=== PATIENT | female | born 1990 | race African-American/Black ===

== ENCOUNTER 2020-07-16 14:38 | Emergency (ER) | payer OTHER, SELFPAY ==
[2020-07-16 14:42] VITALS: BP 153/97; PULSE 104; RESP 16; TEMP 36.4; O2SAT 99
--- NOTE | 2020-07-16 14:58 | ED.URI ---
HPI - URI/Sore Throat General Chief Complaint: Upper Respiratory Infection Stated Complaint: sore throat Time Seen by Provider: 07/16/20 14:48 Source: patient and RN notes reviewed Mode of arrival: ambulatory Limitations: no limitations History of Present Illness HPI Narrative: Patient presents today complaining of sore throat x2 days with fever up to 102.5, with minor congestion and rhinorrhea. Currently rates her pain 8/10 and has been taking Tylenol for fever with some relief. She had a negative COVID test a few days ago. No recent antibiotic use. Denies shortness of breath or difficulty swallowing. Pain increases with swallowing. MD elicited complaint: sore throat Related Data Allergies Allergy/AdvReac Type Severity Reaction Status Date / Time No Known Allergies Allergy Unknown Verified 07/16/20 14:48 Review of Systems Review of Systems: Narrative: CONSTITUTIONAL: Denies body aches, chills, or sweats.+ Fever EYES: Denies visual changes, redness, or discharge. ENT: Denies otalgia. + Sore throat, congestion, rhinorrhea CARDIOVASCULAR: Denies chest pain, palpitations, or edema. RESPIRATORY: Denies cough or dyspnea. GASTROINTESTINAL: Denies abdominal pain, nausea, vomiting, or diarrhea. GENITOURINARY: Denies dysuria or hematuria. SKIN: Denies rash, itching, or wounds. MUSCULOSKELETAL: Denies back pain, joint pain, or myalgia. NEUROLOGIC: Denies headache, numbness, tingling, or weakness. PSYCH: Denies depression or anxiety. [facility] Past Medical History Medical History (Updated 07/16/20 @ 15:04 by Susan Darling, [facility]) Asthma Bronchitis Surgical History Surgical History Previous section Social History Social History Social History: Smoker Smoking status: Current every day smoker Tobacco type: cigarettes Gender identity (if verbalized by the patient): Female Comments At time of signature, I have reviewed and agree with nursing past medical, surgical, social and family history unless otherwise noted. Please see nursing chart for further information. There is no relevant family history pertinent to the presenting complaint Exam Narrative: Exam Narrative: GENERAL: Well-appearing, well-nourished, and in no acute distress. HEAD: Normocephalic, atraumatic. EYES: EOMI. No redness or drainage. Conjunctivae normal. ENT: Mucous membranes pink and moist. Nares clear. No rhinorrhea. TMs normal bilaterally. Throat severely erythematous. Tonsils 4+ with exudate. Uvula midline. NECK: Normal AROM. Supple. Bilateral anterior and tonsillar lymphadenitis, left posterior lymphadenitis CHEST: No respiratory distress. Clear to auscultation. HEART: Regular rate and rhythm. No murmur appreciated. Normal peripheral pulses. EXTREMITIES: Normal range of motion. No edema. SKIN: Warm, dry, no rash. Capillary refill normal. Normal skin turgor. NEURO: No focal deficits. Alert and oriented x3. Gait steady. PSYCH: Normal affect. No signs of depression or anxiety. Course Vital Signs Vital signs: Vital Signs Temperature 97.6 F 07/16/20 14:42 Pulse Rate 104 H 07/16/20 14:42 Respiratory Rate 16 07/16/20 14:42 Blood Pressure 153/97 H 07/16/20 14:42 Pulse Oximetry 99 07/16/20 14:42 Temperature 97.6 F 07/16/20 14:42 Pulse Rate 104 H 07/16/20 14:42 Respiratory Rate 16 07/16/20 14:42 Blood Pressure 153/97 H 07/16/20 14:42 Pulse Oximetry 99 07/16/20 14:42 Reviewed. Pt has been instructed to follow up with her PCP regarding her elevated blood pressure today. MDM - URI/Sore Throat Differential Diagnosis Differential diagnosis: Likely upper respiratory infection, otitis media, viral infection, pharyngitis and other (Tonsillitis, strep throat) Lab Data Attestation: I reviewed the patient's lab results. Labs: Strep Screen Positive Group A Strep
== END 2020-07-16 15:07 | disposition home or self-care (01) ==
PROVIDERS: Emergency Provider Nurse Practitioner
DX: J02.0 Streptococcal pharyngitis (principal); F17.219 Nicotine dependence, cigarettes, with unspecified nicotine-induced disorders; J45.909 Unspecified asthma, uncomplicated
CPT/HCPCS: 87880; 99213; G0463

== ENCOUNTER 2020-08-23 09:33 | Emergency (ER) | payer OTHER, SELFPAY ==
[2020-08-23 09:38] VITALS: BP 159/111; PULSE 87; RESP 16; TEMP 36.8; O2SAT 100
--- NOTE | 2020-08-23 09:59 | ED.SKABFB ---
HPI - Skin/Abscess/Foreign Bdy General Chief complaint: Skin/Abscess/Foreign Body Stated complaint: all over rash Time Seen by Provider: 08/23/20 10:00 Source: patient and RN notes reviewed Mode of arrival: ambulatory Limitations: no limitations History of Present Illness HPI narrative: 30-year-old female presents with concern for generalized itchy rash. Reports she was treated for potential scabies and an allergic reaction when the rash started over a month and a half ago. She reports she is used scabies treatment every other day for over a month, has washed all of her bedding several times weekly, vacuum furniture to treat for scabies. Reports all family members were treated for scabies. She reports generalized itchy bumps, large red patches under her breasts and in her groin. She denies difficulty breathing, swollen lips, swollen tongue. Denies any other intervention. MD complaint: rash Related Data Home Medications Medication Instructions Recorded Confirmed permethrin 5 applic TOPICAL DIRECTED 08/23/20 08/23/20 Allergies Allergy/AdvReac Type Severity Reaction Status Date / Time No Known Allergies Allergy Unknown Verified 07/16/20 14:48 Review of Systems Review of Systems: Narrative: CONSTITUTIONAL: Denies malaise, chills, sweats, or fever. EYES: Denies visual changes, redness, or discharge. ENT: Denies rhinorrhea, congestion, sinus pain, otalgia, sore throat, swollen lips, swollen tongue, difficulty swallowing. CARDIOVASCULAR: Denies chest pain, palpitations, or edema. RESPIRATORY: Denies cough or dyspnea. GASTROINTESTINAL: Denies abdominal pain, nausea, vomiting, diarrhea SKIN: Reports itchy rash generalized MUSCULOSKELETAL: Denies myalgia. NEUROLOGIC: Denies headache. All systems reviewed & are unremarkable except as noted in HPI and below [facility] Past Medical History Medical History (Updated 08/23/20 @ 10:15 by Katia Robles NP) Asthma Bronchitis Surgical History Surgical History Previous section Social History Social History Social History: Smoker Smoking status: Current every day smoker Tobacco type: cigarettes Gender identity (if verbalized by the patient): Female Comments At time of signature, agree with nursing past medical, surgical, social and family history. There is no relevant family history pertinent to the presenting complaint Exam Narrative: Exam Narrative: GENERAL: Well-appearing, well-nourished, and in no acute distress. HEAD: Normocephalic EYES: PERRLA, conjunctivae clear ENT: Nares clear. Mucous membranes moist. Oropharynx without edema erythema or lesions. NECK: Supple. CHEST: No respiratory distress. Clear to auscultation. No bony deformities, no asymmetry. Speaks in full sentences. HEART: Regular rate and rhythm. No murmur heard. SKIN: Warm, dry. Erythematous raised patch under entirety of breasts and groin with satellite lesions, generalized erythematous raised patches of rash, plaque NEURO: Alert and oriented x3. PSYCH: Normal mood and affect Course Course Emergency Course: Patient is aware of diagnosis, understands and agrees to treatment plan. Anticipatory guidance given. Patient agrees to follow-up as directed and is aware of reasons to seek care at the emergency department. Portions of this record may have been created with voice recognition software Vital Signs Vital signs: Vital Signs Temperature 98.3 F 08/23/20 09:38 Pulse Rate 87 08/23/20 09:38 Respiratory Rate 16 08/23/20 09:38 Blood Pressure 159/111 H 08/23/20 09:38 Pulse Oximetry 100 08/23/20 09:38 Temperature 98.3 F 08/23/20 09:38 Pulse Rate 87 08/23/20 09:38 Respiratory Rate 16 08/23/20 09:38 Blood Pressure 159/111 H 08/23/20 09:38 Pulse Oximetry 100 08/23/20 09:38 Reviewed. Patient has been instructed to follow up with her p
== END 2020-08-23 10:21 | disposition home or self-care (01) ==
PROVIDERS: Emergency Provider Nurse Practitioner
DX: R21 Rash and other nonspecific skin eruption (principal); B37.2 Candidiasis of skin and nail; J45.909 Unspecified asthma, uncomplicated; F17.210 Nicotine dependence, cigarettes, uncomplicated
CPT/HCPCS: 99213; G0463

== ENCOUNTER 2022-01-18 18:15 | Emergency (ER) | payer OTHER, SELFPAY ==
[2022-01-18 18:24] VITALS: BP 142/74; PULSE 93; RESP 18; TEMP 37.1; O2SAT 98
--- NOTE | 2022-01-18 18:34 | ED.SKABFB ---
HPI - Skin/Abscess/Foreign Bdy General Chief complaint: Skin/Abscess/Foreign Body Stated complaint: Inset Bite Time Seen by Provider: 01/18/22 18:35 Source: patient and RN notes reviewed Mode of arrival: ambulatory Limitations: no limitations History of Present Illness HPI narrative: 31-year-old female who is approximately 6 months and goes to [facility] in [place] for her OB care due to high risk. Complains of a 3 cm red warm area to the lateral aspect right breast. Patient states it started as a pimple 3 to 4 days ago and is just keeps getting bigger. Denies fevers, chest pain or abdominal pain. No nausea vomiting or diarrhea. Related Data Home Medications Medication Instructions Recorded Confirmed vit#24-iron amino acid 1 tablet PO DAILY 01/18/22 01/18/22 chelat-folic acid 30 mg-975 mcg tablet Allergies Allergy/AdvReac Type Severity Reaction Status Date / Time No Known Allergies Allergy Unknown Verified 01/18/22 18:27 Review of Systems Review of Systems: All systems reviewed & are unremarkable except as noted in HPI and below Constitutional: Constitutional: Reports no additional constitutional complaints, Denies chills and Denies fever(s) Eyes: Eyes: Reports no additional eye complaints ENT: Reports system reviewed and no additional complaints, except as documented Cardiovascular: Cardiovascular: Reports no additional cardiovascular complaints Respiratory: Respiratory: Reports no additional respiratory complaints Gastrointestinal: Gastrointestinal: Reports no additional gastrointestinal complaints Musculoskeletal: Musculoskeletal: Reports no additional musculoskeletal complaints Integumentary/Breasts: Skin/Breast: Reports as per HPI and Reports erythema (Lateral right breast) Neurologic: Reports system reviewed and no additional complaints, except as documented Psychiatric: Psychiatric: Reports no additional psychiatric complaints Allergic/Immunologic: Allergic/Immunologic: Reports no additional allergic/immunologic complaints [facility] Past Medical History Medical History Asthma Bronchitis Surgical History Surgical History Previous section Social History Social History Social History: Smoker Smoking status: Current every day smoker Tobacco type: cigarettes Gender identity (if verbalized by the patient): Female Comments At the time of my signature, I reviewed and agree with the nursing past medical, surgical, social, and family history. There is no relevant family history pertinent to the patient complaint. Exam Const: General: healthy appearing, no acute distress and alert Nutritional Appearance: well nourished Orientation/consciousness: patient oriented x3 Limitations: no limitations HENMT: Head: normal to inspection Ears: external ears normal Eyes: Pupils: Equal, round and reactive pupils present Neck: Neck: normal visual inspection, no lymphadenopathy and no meningeal signs Chest: Chest palpation & inspection: normal inspection of the chest Resp: Effort & Inspection: normal respiratory effort and no use of accessory muscles Auscultation: clear to auscultation bilaterally, no crackles, no rales, no rhonchi and no wheezes Cardio: Rate: regular rate Rhythm: regular rhythm GI: GI Palp: Yes Soft to palpation and No Tenderness to palpation present (GI) Skin: General skin exam: normal color Lesions: lesion noted (Lateral right breast warm 3 cm raised area, no fluctuance) Rashes: no rashes Wounds: no wounds Neuro: General: patient oriented x3, moves all extremities, no meningeal signs and no focal motor deficits Cranial nerves: Yes Equal, round and reactive pupils present Speech: normal speech Gait exam (Neuro): Normal gait present Extrem: General: normal to inspection Psych:
== END 2022-01-18 18:43 | disposition home or self-care (01) ==
PROVIDERS: Emergency Provider Nurse Practitioner
DX: O99.891 Other specified diseases and conditions complicating pregnancy (principal); Z3A.00 Weeks of gestation of pregnancy not specified; N61.0 Mastitis without abscess; O99.512 Diseases of the respiratory system complicating pregnancy, second trimester; J45.909 Unspecified asthma, uncomplicated; O99.332 Smoking (tobacco) complicating pregnancy, second trimester; F17.219 Nicotine dependence, cigarettes, with unspecified nicotine-induced disorders
CPT/HCPCS: 99213; G0463

== ENCOUNTER 2022-08-29 15:14 | Emergency (ER) | payer OTHER, SELFPAY ==
[2022-08-29 15:22] VITALS: BP 149/94; PULSE 86; RESP 16; TEMP 36.7; O2SAT 100
--- NOTE | 2022-08-29 15:39 | ED.EYEPROB ---
HPI - Eye Problem General Chief complaint: Eye Problems Stated complaint: redness right eye Time Seen by Provider: 08/29/22 15:40 Source: patient Mode of arrival: ambulatory Limitations: no limitations History of Present Illness HPI Narrative: 32 y/o female presented for c/o right eye irritation. Today she reports redness and tearing with swollen lid. Yesterday she felt she had something in the eye and admits to rubbing the eye throughout the day. States it felt like something was scratching the eye each time she blinked. Denies photophobia, visual changes. chief complaint: eye pain Related Data Allergies Allergy/AdvReac Type Severity Reaction Status Date / Time No Known Allergies Allergy Unknown Verified 01/18/22 18:27 Review of Systems Review of Systems: CONSTITUTIONAL: Denies body aches, fever, chills EYES:Endorses swelling, redness and tearing to right eye, FB sensation, denies photophobia, visual changes ENT: Denies rhinorrhea, congestion, sore throat, or otalgia. CARDIOVASCULAR: Denies chest pain, palpitations RESPIRATORY: Denies cough or dyspnea. GASTROINTESTINAL: Denies abdominal pain, nausea, vomiting, or diarrhea. SKIN: Denies rash, itching, or wounds. MUSCULOSKELETAL: Denies back pain, joint pain, or myalgia. NEUROLOGIC: Denies headache, numbness, tingling, or weakness. All systems reviewed & are unremarkable except as noted in HPI and below [facility] Past Medical History Medical History Asthma Bronchitis Surgical History Surgical History Previous section Social History Social History Social History: Smoker Smoking status: Current every day smoker Tobacco type: cigarettes Gender identity (if verbalized by the patient): Female Comments At time of signature, I have reviewed and agree with nursing past medical, surgical, social and family history unless otherwise noted. Please see nursing chart for further information. There is no relevant family history pertinent to the presenting complaint Exam Narrative: GENERAL: Well-appearing HEAD: Normocephalic, atraumatic. EYES: right conjunctival injection, mild upper eye lid swelling, mild clear tearing/drainage; PERRLA, EOMI. Lid eversion showed no FB. No corneal abrasion on exam. ENT: Mucous membranes pink and moist. No rhinorrhea. TMs normal bilaterally. Throat normal. Uvula midline. CHEST: Clear to auscultation. HEART: Regular rate and rhythm. ABDOMEN: Soft, nontender, nondistended SKIN: Warm, dry, no rash. Normal skin turgor. NEURO: No focal deficits. Alert and oriented x3 PSYCH: Normal affect. Course Course Emergency Course: Patient is aware of diagnosis, understands and agrees to treatment plan. Anticipatory guidance given. Patient agrees to follow-up as directed and is aware of reasons to seek care at the emergency department. Portions of this record may have been created with voice recognition software Level of Care: Express Care Visit Vital Signs Vital signs: Vital Signs Temperature 98.0 F 08/29/22 15:22 Pulse Rate 86 08/29/22 15:22 Respiratory Rate 16 08/29/22 15:22 Blood Pressure 149/94 H 08/29/22 15:22 Pulse Oximetry 100 08/29/22 15:22 Oxygen Delivery Room Air 08/29/22 15:22 Temperature 98.0 F 08/29/22 15:22 Pulse Rate 86 08/29/22 15:22 Respiratory Rate 16 08/29/22 15:22 Blood Pressure 149/94 H 08/29/22 15:22 Pulse Oximetry 100 08/29/22 15:22 Oxygen Delivery Room Air 08/29/22 15:22 Procedures Other Procedure Procedure 1: Other Procedure: Fluorescein eye stain performed to the right eye, using brown lamp, no FB or corneal abrasion noted. Patient wiped eye after eye wash and noted a small eyelash, and reported improvement in symptoms. MDM - Eye Problem [facility] Narrative Medical de
== END 2022-08-29 15:58 | disposition home or self-care (01) ==
PROVIDERS: Emergency Provider Nurse Practitioner Family
DX: H11.431 Conjunctival hyperemia, right eye (principal); F17.210 Nicotine dependence, cigarettes, uncomplicated; J45.909 Unspecified asthma, uncomplicated
CPT/HCPCS: 99213; A9270; G0463

== ENCOUNTER 2022-09-02 12:02 | Emergency (ER) | payer OTHER, SELFPAY ==
[2022-09-02 12:07] VITALS: BP 142/88; PULSE 71; RESP 20; TEMP 37; O2SAT 100
--- NOTE | 2022-09-02 13:03 | ED_ITS ---
HPI - Allergic Reaction General Chief complaint: Allergic Reaction Stated complaint: eye swelling Time Seen by Provider: 09/02/22 13:03 Source: patient and family Mode of arrival: ambulatory Limitations: no limitations History of Present Illness HPI narrative: 32 years old presented to the ED with pinkeye bilaterally, right eyes started Related Data Allergies Allergy/AdvReac Type Severity Reaction Status Date / Time No Known Allergies Allergy Unknown Verified 01/18/22 18:27 [facility] Past Medical History Medical History (Updated 09/02/22 @ 13:22 by Sreekanth Elena MD) Asthma Bronchitis Surgical History Surgical History Previous section Social History Social History Social History: Smoker Smoking status: Current every day smoker Tobacco type: cigarettes Gender identity (if verbalized by the patient): Female Course Vital Signs Vital signs: Vital Signs Temperature 37.0 C 09/02/22 12:07 Pulse Rate 71 09/02/22 12:07 Respiratory Rate 09/02/22 12:07 Blood Pressure 142/88 H 09/02/22 12:07 Pulse Oximetry 100 09/02/22 12:07 Oxygen Delivery Room Air 09/02/22 12:07 Temperature 37.0 C 09/02/22 12:07 Pulse Rate 71 09/02/22 12:07 Respiratory Rate 20 09/02/22 12:07 Blood Pressure 142/88 H 09/02/22 12:07 Pulse Oximetry 100 09/02/22 12:07 Oxygen Delivery Room Air 09/02/22 12:07 Discharge Plan Discharge Clinical Impression: Acute viral conjunctivitis Patient Disposition: Home, Self-Care Condition: Stable Instructions: Antibiotic Form, Conjunctivitis (ED) Additional Instructions: Return if symptoms are worsening , call your family physician for appointment, take Tylenol as as needed for aches and pain, continue home medications. Viral conjunctivitis is generally self-limited, Apply cool compresses, personal hygiene, frequent handwashing, no antibiotic needed for viral conjunctivitis.. If you are not improving in 2 days follow-up with [facility] at [phone] Prescriptions: New naphazoline-pheniramine 0.025-0.3 % drops 2 drp EACH EYE QID PRN (Reason: eye irritation) Qty: 15 0RF No Action ketorolac 0.5 % drops 1 drp RIGHT EYE Q6H PRN (Reason: pain) Qty: 3 0RF Follow-up/Referrals: Cirilo Taylor MD [Physician] - 09/04/22 UNKNOWN,DOCTOR [Primary Care Provider] -
== END 2022-09-02 13:34 | disposition home or self-care (01) ==
PROVIDERS: Emergency Provider Emergency Medicine
DX: B30.9 Viral conjunctivitis, unspecified (principal); J45.909 Unspecified asthma, uncomplicated; F17.210 Nicotine dependence, cigarettes, uncomplicated
CPT/HCPCS: 99283

== ENCOUNTER 2023-02-03 09:52 | Emergency (ER) | payer OTHER, SELFPAY ==
--- NOTE | 2023-02-03 09:59 | ED.URI ---
HPI - URI/Sore Throat General Chief Complaint: Upper Respiratory Infection Stated Complaint: throat and left ear hurts Time Seen by Provider: 02/03/23 10:19 Source: patient, RN notes reviewed and old records reviewed Mode of arrival: ambulatory Limitations: no limitations History of Present Illness HPI Narrative: 32-year-old female presents to the [facility] with sore throat and left ear pain for 2 days. No treatment prior to arrival. MD elicited complaint: sore throat Related Data Allergies Allergy/AdvReac Type Severity Reaction Status Date / Time No Known Allergies Allergy Unknown Verified 02/03/23 09:57 Review of Systems Review of Systems: All systems reviewed & are unremarkable except as noted in HPI and below Constitutional: Constitutional: Reports no additional constitutional complaints Eyes: Eyes: Reports no additional eye complaints ENT: Reports as per HPI, Reports otalgia and Reports sore throat Cardiovascular: Cardiovascular: Reports no additional cardiovascular complaints, Denies chest pain and Denies dyspnea Respiratory: Respiratory: Reports no additional respiratory complaints, Denies chest congestion, Denies cough and Denies dyspnea Gastrointestinal: Gastrointestinal: Reports no additional gastrointestinal complaints, Denies abdominal pain, Denies nausea and Denies vomiting Musculoskeletal: Musculoskeletal: Reports no additional musculoskeletal complaints Integumentary/Breasts: Skin/Breast: Reports system reviewed and no additional complaints, except as docu Neurologic: Reports system reviewed and no additional complaints, except as documented Psychiatric: Psychiatric: Reports no additional psychiatric complaints Allergic/Immunologic: Allergic/Immunologic: Reports no additional allergic/immunologic complaints PMFSH Past Medical History Medical History Asthma Bronchitis Surgical History Surgical History Previous section Social History Social History Social History: Smoker Smoking status: Current every day smoker Tobacco type: cigarettes Gender identity (if verbalized by the patient): Female Comments At the time of my signature, I reviewed and agree with the nursing past medical, surgical, social, and family history. There is no relevant family history pertinent to the patient complaint. Exam Const: General: cooperative, healthy appearing, comfortable, no acute distress, well developed, alert and well nourished Nutritional Appearance: well nourished Orientation/consciousness: patient oriented x3 Limitations: no limitations HENMT: Head: normal to inspection Ears: hearing grossly normal bilaterally and external ears normal Face/Nose/Sinus: Normal external nose present, Normal nares present, Normal nasal mucous membranes and turbinates present and normal facial exam Face and sinus: normal facial exam Mouth: Yes Normal oral and palatal mucosa present, Yes lip normal and Yes moist mucous membranes Throat: uvula midline, abnormal tonsil bilateral erythema, exudates and hypertrophy 3+ and posterior oropharynx abnormal erythema Eyes: General: appearance normal, both eyes and all related structures Alignment and Position: alignment normal Periorbital: periorbital findings normal Pupils: Equal, round and reactive pupils present EOM: EOMs intact bilaterally Neck: Neck: normal visual inspection, full ROM, no lymphadenopathy and no meningeal signs Chest: Chest palpation & inspection: normal inspection of the chest Resp: Effort & Inspection: normal respiratory effort and able to speak in complete sentences Auscultation: clear to auscultation bilaterally, no crackles, no rales, no rhonchi and no wheezes Cardio: Rate: regular rate Rhythm: regular rhythm Back/Spine/Pelvis: Cervical Spine: cervical ROM normal Thoracic/L
[2023-02-03 10:02] VITALS: BP 159/94; PULSE 81; RESP 16; TEMP 37.2; O2SAT 99
== END 2023-02-03 10:32 | disposition home or self-care (01) ==
PROVIDERS: Emergency Provider Nurse Practitioner
DX: J02.0 Streptococcal pharyngitis (principal); J45.909 Unspecified asthma, uncomplicated; F17.210 Nicotine dependence, cigarettes, uncomplicated
CPT/HCPCS: 87880; 99213; G0463

== ENCOUNTER 2023-02-05 08:13 | Emergency (ER) | payer OTHER, SELFPAY ==
--- NOTE | 2023-02-05 08:23 | ED.ALLEREA ---
HPI - Allergic Reaction General Chief complaint: Allergic Reaction Stated complaint: Allergic Reaction Time Seen by Provider: 02/05/23 08:42 Source: patient and RN notes reviewed Mode of arrival: ambulatory Limitations: no limitations History of Present Illness HPI narrative: 32-year-old female presents concern for rash. She reports she got a rash yesterday that is itchy, generalized. She reports she has been taking amoxicillin for strep throat, she took a proximally 4 doses. She reports she has been using Benadryl which has been helping with the itching but not resolving it. She reports she took penicillin in August for strep throat she got a similar rash but was told was not allergic reaction at that time. She denies swollen lips, swollen tongue, trouble breathing. MD complaint: allergic reaction Related Data Allergies Allergy/AdvReac Type Severity Reaction Status Date / Time Penicillins Allergy Rash Verified 02/05/23 08:34 Review of Systems Review of Systems: CONSTITUTIONAL: Denies malaise, chills, sweats, or fever. EYES: Denies redness, or discharge. ENT: Denies rhinorrhea, congestion, swollen lips, swollen tongue CARDIOVASCULAR: Denies chest pain, palpitations, or edema. RESPIRATORY: Denies cough or dyspnea. GASTROINTESTINAL: Denies abdominal pain, nausea, vomiting SKIN: Reports generalized due to rash MUSCULOSKELETAL: Denies joint pain or myalgia. NEUROLOGIC: Denies headache. All systems reviewed & are unremarkable except as noted in HPI and below PMFSH Past Medical History Medical History (Updated 02/05/23 @ 08:51 by Katia Robles NP) Asthma Bronchitis Surgical History Surgical History Previous section Social History Social History Social History: Smoker Smoking status: Current every day smoker Tobacco type: cigarettes Gender identity (if verbalized by the patient): Female Comments At time of signature, agree with nursing past medical, surgical, social and family history. There is no relevant family history pertinent to the presenting complaint Exam Narrative: GENERAL: Well-appearing, well-nourished, and in no acute distress. HEAD: Normocephalic, atraumatic. EYES: PERRLA, conjunctivae clear, and EOMI. ENT: Mucous membranes moist. Oropharynx without edema, erythema or lesions. NECK: Supple. No lymphadenopathy CHEST: Clear to auscultation. No respiratory distress. HEART: Regular rate and rhythm. SKIN: Warm, dry. Erythematous papular rash noted to arms, chest, legs NEURO: Alert and oriented x3. PSYCH: Normal mood and affect Course Course Emergency Course: Patient is aware of diagnosis, understands and agrees to treatment plan. Anticipatory guidance given. Patient agrees to follow-up as directed and is aware of reasons to seek care at the emergency department. Portions of this record may have been created with voice recognition software Level of Care: Express Care Visit Vital Signs Vital signs: Reviewed. MDM - Allergic Reaction MDM Narrative Medical decision making narrative: No soft palate or uvula edema, no tongue or lip edema or other mucosal involvement, no respiratory compromise, no stridor, no wheezing, no wheezing, no history of syncope, no hypotension, no nausea, vomiting, or diarrhea. Differential Diagnosis Differential diagnosis: Likely anaphylaxis, allergic reaction, angioedema, contact dermatitis, adverse reaction to drug, viral enanthem and urticaria Critical Care Time Critical Care Time Critical Care Time: No Discharge Plan Discharge Clinical Impression: Allergic reaction to drug Patient Disposition: Home, Self-Care Condition: Stable Instructions: Antibiotic Form, Antibiotic Medication Allergy (ED) Additional Instructions: Stop taking amoxicillin, start taking azithromycin. You should add penicillin to your allergy li
[2023-02-05 08:24] VITALS: BP 170/116; PULSE 83; RESP 16; TEMP 36.9; O2SAT 99
== END 2023-02-05 08:55 | disposition home or self-care (01) ==
PROVIDERS: Emergency Provider Nurse Practitioner
DX: L27.0 Generalized skin eruption due to drugs and medicaments taken internally (principal); T36.0X5A Adverse effect of penicillins, initial encounter; J45.909 Unspecified asthma, uncomplicated; F17.210 Nicotine dependence, cigarettes, uncomplicated
CPT/HCPCS: 99213; G0463

== ENCOUNTER 2024-02-11 15:51 | Emergency (ER) | payer OTHER, SELFPAY ==
[2024-02-11 16:03] VITALS: BP 153/81; PULSE 84; RESP 16; TEMP 36.4; O2SAT 99
--- NOTE | 2024-02-11 16:14 | ED.URI ---
HPI - URI/Sore Throat General Chief Complaint: Skin/Abscess/Foreign Body Stated Complaint: throat Time Seen by Provider: 02/11/24 16:12 Source: patient, RN notes reviewed and old records reviewed Mode of arrival: ambulatory Limitations: no limitations History of Present Illness HPI Narrative: 33 year old female who presents to [facility] care with complaints of sore throat for the past 4 hours. Patient has not taken any OTC medication for her symptoms. Patient has swollen red tonsils with white exudates to the right tonsil. Patient reports painful swallowing, denies any known temps, reports some nasal drainage stuffiness denies any cough. Patient has not taken any OTC medication for her symptoms. MD elicited complaint: sore throat Pertinent past history: other (frequent strep) Onset (ago): hour(s) (4) Severity: moderate Able to tolerate fluids by mouth: Yes Treatments prior to arrival: none Related Data Allergies Allergy/AdvReac Type Severity Reaction Status Date / Time Penicillins Allergy Rash Verified 02/05/23 08:34 Review of Systems Review of Systems: CONSTITUTIONAL: Denies malaise, chills, sweats, or fever. EYES: Denies visual changes, redness, or discharge. ENT: Reports rhinorrhea, congestion,no sinus pain,no otalgia and positive for sore throat. CARDIOVASCULAR: Denies chest pain, palpitations, or edema. RESPIRATORY: Reports no cough.? Denies dyspnea. GASTROINTESTINAL: Denies abdominal pain, nausea, vomiting, diarrhea SKIN: Denies rash or itching. MUSCULOSKELETAL: Denies myalgia. NEUROLOGIC: Denies headache. All systems reviewed & are unremarkable except as noted in HPI and below PMFSH Past Medical History Medical History (Updated 02/14/24 @ 17:31 by Bibiana Beltran NP) Asthma Bipolar 1 disorder Bronchitis Depression Strep throat Surgical History Surgical History Previous section x4 Social History Social History Social History: Smoker Smoking status: Current every day smoker Tobacco type: cigarettes Gender identity (if verbalized by the patient): Female Comments At time of signature, agree with nursing past medical, surgical, social and family history. There is no relevant family history pertinent to the presenting complaint Exam Narrative: GENERAL: Well-appearing, well-nourished, and in no acute distress. HEAD: Normocephalic EYES: PERRLA, conjunctivae clear ENT: Nares clear, turbinates edematous and erythematous, clear discharge. Mucous membranes moist. TM pearly swenson with dull light reflex bilaterally; no tragal tenderness. Oropharynx erythematous without lesions. Tonsils red enlarged and with exudate to right tonsil, no drooling, no hoarseness, no trismus, uvula midline.post nasal drainage noted NECK: Supple. lymphadenopathy CHEST: Clear to auscultation, breath sounds equal. No wheezing, rhonchi, rales, or stridor. No respiratory distress, speaks in full sentences.no cough noted SAO2 99% on room air HEART: Regular rate and rhythm. No murmur heard. SKIN: Warm, dry, no rash. NEURO: Alert and oriented x3. PSYCH: Normal mood and affect Course Course Emergency Course: Patient is aware of diagnosis, understands and agrees to treatment plan.? Anticipatory guidance given.? Patient agrees to follow-up as directed and is aware of reasons to seek care at the emergency department. Portions of this record may have been created with voice recognition software Level of Care: Express Care Visit Vital Signs Vital signs: Vital Signs Temperature 36.4 C L 02/11/24 16:03 Pulse Rate 84 02/11/24 16:03 Respiratory Rate 16 02/11/24 16:03 Blood Pressure 153/81 H 02/11/24 16:03 Pulse Oximetry 99 02/11/24 16:03 Oxygen Delivery Room Air 02/11/24 16:03 Temperature 36.4 C L 02/11/24 16:03 Pulse Rate 84 02/11/24 16:03 Res
== END 2024-02-11 16:31 | disposition home or self-care (01) ==
PROVIDERS: Emergency Provider Registered Nurse
DX: J03.90 Acute tonsillitis, unspecified (principal); F17.210 Nicotine dependence, cigarettes, uncomplicated; J45.909 Unspecified asthma, uncomplicated
CPT/HCPCS: 87081; 87880; 99213; G0463